=== PATIENT | male | born 1975 | race Two or more races ===

== ENCOUNTER → 2021-07-10 08:42 | Outpatient (CLI) | payer MEDICAID, SELFPAY ==
--- NOTE | 2021-07-10 08:46 | US_ITS ---
FINAL REPORT TECHNIQUE: Sonographic images of the abdomen were obtained in all four quadrants. CLINICAL HISTORY: pancreatitis FINDINGS: The liver is fatty infiltrated. There is no focal hepatic lesion or intrahepatic biliary dilatation. The gallbladder is well filled. There are no gallstones. There is no pericholecystic fluid collection or gallbladder wall thickening. The common duct is within normal limits for age. The pancreas head appears enlarged. There appears to be prominence of the pancreatic duct. The right and left kidneys measure 11.0 and 10.5 cm respectively. There is no hydronephrosis, mass, or stone. The spleen measures 8.4 cm in [id number] length. There is no focal splenic lesion. There is no ascites. The visualized abdominal aorta and inferior vena cava are within normal limits. IMPRESSION: Enlarged pancreatic head with mild prominence of the pancreatic duct. Findings could be due to pancreatitis. Mass would be difficult to exclude. Fatty liver. Consider CT. Reviewed, Interpreted and Dictated by Aura Ruelas MD Transcribed by Mikhail Lopez Authenticated by Aura Ruelas MD on 07/10/2021 11:06:27 AM [facility]
[2021-07-10 10:03] LABS: Basophils # 0.2 K/mm3 (0-0.2); Basophils % 2.3 % (0.1-2.0); Eosinophils # 0.2 K/mm3 (0.0-0.4); Eosinophils % 2.8 % (0.1-12.0); Hematocrit 46.1 % (42.0-52.0); Hemoglobin 15.4 g/dL (14.1-18.0); Lymphocytes # 2.1 K/mm3 (0.7-4.5); Mean Corpuscular HGB Conc 33.4 g/dL (31.8-35.4); Mean Corpuscular Hemoglobin 35.4 pg (27.0-31.2); Mean Platelet Volume 8.3 fl (7.4-10.4); Monocytes # 0.4 K/mm3 (0.1-1.0); Neutrophils # 3.7 K/mm3 (1.8-7.8); Neutrophils % 56.9 % (37.0-80.0); Platelet Count 275 K/mm3 (142-424); Red Blood Count 4.35 M/mm3 (4.60-6.20); White Blood Count 6.6 K/mm3 (4.8-10.8)
[2021-07-10 10:38] LABS: Alanine Aminotransferase 42 U/L (12-78); Albumin Level 5.3 g/dl (3.5-5.0); Albumin/Globulin Ratio 1.1 (1.1-1.8); Alkaline Phosphatase 116 U/L (38-126); Anion Gap 18.3 mEq/L (5-15); Aspartate Amino Transferase 120 U/L (17-59); Bilirubin,Total 0.3 mg/dl (0.2-1.3); Blood Urea Nitrogen 5 mg/dl (9-20); Calcium 10.1 mg/dl (8.4-10.2); Carbon Dioxide 27 mmol/L (22.0-30.0); Chloride 95 mmol/L (98-107); Cholesterol 239 mg/dl (140-200); Estimated Glomerular Filt Rate 105 ml/min (>60); GFR (African American) 127 ML/MIN (>60); Glucose 81 mg/dl (74-100); Potassium 4.3 mmoL/L (3.5-5.1); Sodium 136 mmol/L (136-145); Total Protein,Serum 10.3 g/dl (6.3-8.2); Triglycerides 93 mg/dl (30-150); VLDL Cholesterol 19 mg/dL (0-40)
[2021-07-10 10:50] LABS: Direct LDL Cholesterol 62.79 mg/dL (100-129)
[2021-07-10 10:55] LABS: T4 (Thyroxine) 7.8 ug/dl (5.53-11.0)
[2021-07-10 10:56] LABS: 25-OH Vitamin D, Total 23.5 ng/mL (30-100)
[2021-07-10 11:00] LABS: Chol/HDL Ratio 1.6 (1-3.5); HDL Cholesterol 146 mg/dl (40-60)
[2021-07-10 11:09] LABS: Prostate Specific Ag Screen 0.6 ng/ml (0.0-4.0); Thyroid Stimulating Hormone 4.73 uIU/mL (0.465-4.68)
== END ==
PROVIDERS: PCP Nurse Practitioner Family; Visit Provider Nurse Practitioner Family
DX: Z00.00 Encounter for general adult medical examination without abnormal findings (principal); K85.90 Acute pancreatitis without necrosis or infection, unspecified; Z12.5 Encounter for screening for malignant neoplasm of prostate; E55.9 Vitamin D deficiency, unspecified
CPT/HCPCS: 36415; 76700; 80053; 80061; 82306; 84436; 84443; 85025; G0103

== ENCOUNTER → 2021-09-08 09:59 | Outpatient (CLI) | payer MEDICAID, SELFPAY ==
--- NOTE | 2021-09-08 09:59 | CT_ITS ---
FINAL REPORT CLINICAL HISTORY: Abdominal pain, weightloss, bloating FINDINGS: CT ABDOMEN with and without: PROCEDURE: Axial images were obtained from the lung base to the iliac crest by computed tomography before and after the administration of contrast. This study was performed with techniques to keep radiation doses as low as reasonably achievable (ALARA). Individualized dose reduction techniques using automated exposure control or adjustment of mA and/or kV according to the patient's size were employed. ABDOMEN: There are nodular groundglass opacities in the right greater than left lower lobes favored to be infectious or inflammatory. The heart is normal in size. The liver is fatty infiltrated. The pancreatic duct is dilated. Within the uncinate process is a cystic lesion measuring 3.1 cm in axial dimensions and 2.8 cm in craniocaudad dimensions favoring a pseudocyst. Cystic neoplasm is felt less likely. There is a small amount of fluid and stranding surrounding the duodenum and pancreatic head concerning for pancreatitis. The remaining solid abdominal organs are unremarkable. There is no lymphadenopathy or ascites. 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 IMPRESSION: Findings concerning for acute pancreatitis involving the pancreatic head. Cystic mass in the head of the pancreas favoring a pseudocyst. Cystic neoplasm felt less likely. Irregular nodular opacities in the bilateral lower lobes concerning for pneumonia. Reviewed, Interpreted and Dictated by Aura Ruelas MD Transcribed by Mikhail Lopez Authenticated and . [facility]
== END ==
PROVIDERS: PCP Nurse Practitioner Family; Visit Provider Nurse Practitioner Family
DX: K86.1 Other chronic pancreatitis (principal)
CPT/HCPCS: 74170; Q9967

== ENCOUNTER → 2022-06-09 14:15 | Outpatient (CLI) | payer MEDICAID, SELFPAY ==
[2022-06-09 20:06] LABS: Amphetamine/Metha Screen,Urine Negative ng/ml (<1000); Barbiturates Screen,Urine Negative ng/ml (<200)
[2022-06-09 20:07] LABS: Benzodiazepines Screen,Urine Negative ng/ml (<200); Cannabinoid Screen,Urine Positive ng/ml (<50)
[2022-06-09 20:08] LABS: Cocaine Screen,Urine Positive ng/ml (<300)
[2022-06-09 20:09] LABS: Methadone Screen,Urine Negative ng/ml (<300); Opiate Screen,Urine Negative ng/ml (<300)
[2022-06-09 20:10] LABS: Phencyclidine Screen,Urine Negative ng/ml (<25)
== END ==
PROVIDERS: PCP Emergency Medicine; Visit Provider Emergency Medicine
DX: Z79.899 Other long term (current) drug therapy (principal)
CPT/HCPCS: 80305

== ENCOUNTER → 2022-08-02 14:45 | Outpatient (CLI) | payer MEDICAID, SELFPAY ==
[2022-08-02 19:15] LABS: Amphetamine/Metha Screen,Urine Negative ng/ml (<1000)
[2022-08-02 19:16] LABS: Barbiturates Screen,Urine Negative ng/ml (<200); Benzodiazepines Screen,Urine Negative ng/ml (<200)
[2022-08-02 19:17] LABS: Cannabinoid Screen,Urine Positive ng/ml (<50)
[2022-08-02 19:18] LABS: Cocaine Screen,Urine Positive ng/ml (<300)
[2022-08-02 19:19] LABS: Methadone Screen,Urine Negative ng/ml (<300)
[2022-08-02 19:20] LABS: Opiate Screen,Urine Negative ng/ml (<300)
[2022-08-02 19:21] LABS: Phencyclidine Screen,Urine Negative ng/ml (<25)
== END ==
PROVIDERS: PCP Emergency Medicine; Visit Provider Emergency Medicine
DX: Z79.899 Other long term (current) drug therapy (principal)
CPT/HCPCS: 80305

== ENCOUNTER → 2022-08-30 15:15 | Outpatient (CLI) | payer MEDICAID, SELFPAY ==
[2022-08-30 19:12] LABS: Amphetamine/Metha Screen,Urine Negative ng/ml (<1000)
[2022-08-30 19:13] LABS: Barbiturates Screen,Urine Negative ng/ml (<200)
[2022-08-30 19:14] LABS: Benzodiazepines Screen,Urine Negative ng/ml (<200); Cannabinoid Screen,Urine Positive ng/ml (<50)
[2022-08-30 19:15] LABS: Cocaine Screen,Urine Positive ng/ml (<300)
[2022-08-30 19:16] LABS: Methadone Screen,Urine Negative ng/ml (<300); Opiate Screen,Urine Negative ng/ml (<300)
[2022-08-30 19:17] LABS: Phencyclidine Screen,Urine Negative ng/ml (<25)
== END ==
PROVIDERS: PCP Emergency Medicine; Visit Provider Emergency Medicine
DX: Z79.899 Other long term (current) drug therapy (principal)
CPT/HCPCS: 80305

== ENCOUNTER → 2022-10-04 23:27 | Outpatient (CLI) | payer MEDICAID, SELFPAY ==
[2022-10-04 21:18] LABS: Amphetamine/Metha Screen,Urine Negative ng/ml (<1000)
[2022-10-04 21:19] LABS: Barbiturates Screen,Urine Negative ng/ml (<200)
[2022-10-04 21:20] LABS: Benzodiazepines Screen,Urine Negative ng/ml (<200); Cannabinoid Screen,Urine Positive ng/ml (<50)
[2022-10-04 21:21] LABS: Cocaine Screen,Urine Negative ng/ml (<300)
[2022-10-04 21:22] LABS: Methadone Screen,Urine Negative ng/ml (<300); Opiate Screen,Urine Negative ng/ml (<300)
[2022-10-04 21:23] LABS: Phencyclidine Screen,Urine Negative ng/ml (<25)
== END ==
PROVIDERS: PCP Emergency Medicine; Visit Provider Emergency Medicine
DX: Z79.899 Other long term (current) drug therapy (principal)
CPT/HCPCS: 80305

== ENCOUNTER → 2022-12-03 08:31 | Outpatient (CLI) | payer MEDICAID, SELFPAY ==
[2022-12-03 18:57] LABS: Basophils # 0.1 K/mm3 (0-0.2); Basophils % 0.7 % (0.1-2.0); Eosinophils % 0.6 % (0.1-12.0); Hematocrit 37.8 % (42.0-52.0); Hemoglobin 12.7 g/dL (14.1-18.0); Lymphocytes # 2.9 K/mm3 (0.7-4.5); Lymphocytes % 42.9 % (10-50); Mean Corpuscular HGB Conc 33.4 g/dL (31.8-35.4); Mean Corpuscular Hemoglobin 35.7 pg (27.0-31.2); Mean Corpuscular Volume 106.7 fl (80-94); Monocytes # 0.6 K/mm3 (0.1-1.0); Monocytes % 8.6 % (1.7-9.3); Neutrophils # 3.2 K/mm3 (1.8-7.8); Neutrophils % 47.2 % (37.0-80.0); Platelet Count 252 K/mm3 (142-424); Red Blood Count 3.55 M/mm3 (4.60-6.20); Red Cell Distribution Width 13.2 % (11.5-17.5); White Blood Count 6.7 K/mm3 (4.8-10.8)
[2022-12-03 19:02] LABS: Alanine Aminotransferase 51 U/L (12-78); Albumin Level 4.7 g/dl (3.5-5.0); Albumin/Globulin Ratio 1.2 (1.1-1.8); Alkaline Phosphatase 85 U/L (38-126); Anion Gap 20.1 mEq/L (5-15); Aspartate Amino Transferase 98 U/L (17-59); Bilirubin,Total 0.2 mg/dl (0.2-1.3); Blood Urea Nitrogen 6 mg/dl (9-20); Carbon Dioxide 21 mmol/L (22.0-30.0); Chloride 100 mmol/L (98-107); Cholesterol 206 mg/dl (140-200); Estimated Glomerular Filt Rate 105 ml/min (>60); GFR (African American) 126 ML/MIN (>60); Globulin 3.8 g/dL (1.3-3.2); Glucose 114 mg/dl (74-100); Potassium 4.1 mmoL/L (3.5-5.1); Sodium 137 mmol/L (136-145); Total Protein,Serum 8.5 g/dl (6.3-8.2); Triglycerides 73 mg/dl (30-150); VLDL Cholesterol 15 mg/dL (0-40)
[2022-12-03 19:12] LABS: Direct LDL Cholesterol 65.04 mg/dL (100-129)
[2022-12-03 19:13] LABS: Amphetamine/Metha Screen,Urine Negative ng/ml (<1000)
[2022-12-03 19:14] LABS: Barbiturates Screen,Urine Negative ng/ml (<200)
[2022-12-03 19:16] LABS: Cannabinoid Screen,Urine Negative ng/ml (<50); Chol/HDL Ratio 1.8 (1-3.5); HDL Cholesterol 116 mg/dl (40-60)
[2022-12-03 19:17] LABS: Benzodiazepines Screen,Urine Negative ng/ml (<200)
[2022-12-03 19:18] LABS: Cocaine Screen,Urine Negative ng/ml (<300); Methadone Screen,Urine Negative ng/ml (<300)
[2022-12-03 19:19] LABS: 25-OH Vitamin D, Total 97.9 ng/mL (30-100); Phencyclidine Screen,Urine Negative ng/ml (<25); T4 (Thyroxine) 7.2 ug/dl (5.53-11.0)
[2022-12-03 19:20] LABS: Opiate Screen,Urine Negative ng/ml (<300)
[2022-12-03 19:32] LABS: Thyroid Stimulating Hormone 0.57 uIU/mL (0.465-4.68)
== END ==
PROVIDERS: PCP Emergency Medicine; Visit Provider Emergency Medicine
DX: K74.60 Unspecified cirrhosis of liver (principal); Z79.899 Other long term (current) drug therapy
CPT/HCPCS: 80053; 80061; 80305; 82306; 84436; 84443; 85025

== ENCOUNTER → 2023-01-31 13:00 | Outpatient (CLI) | payer MEDICAID, SELFPAY ==
[2023-01-31 20:32] LABS: Amphetamine/Metha Screen,Urine Positive ng/ml (<1000)
[2023-01-31 20:35] LABS: Cannabinoid Screen,Urine Positive ng/ml (<50)
[2023-01-31 20:36] LABS: Barbiturates Screen,Urine Negative ng/ml (<200); Benzodiazepines Screen,Urine Negative ng/ml (<200)
[2023-01-31 20:37] LABS: Opiate Screen,Urine Negative ng/ml (<300)
[2023-01-31 20:38] LABS: Cocaine Screen,Urine Positive ng/ml (<300); Methadone Screen,Urine Negative ng/ml (<300)
[2023-01-31 20:39] LABS: Phencyclidine Screen,Urine Negative ng/ml (<25)
== END ==
PROVIDERS: PCP Family Medicine; Visit Provider Family Medicine
DX: K74.60 Unspecified cirrhosis of liver (principal); Z79.899 Other long term (current) drug therapy
CPT/HCPCS: 80305